=== PATIENT | male | born 1990 | race Caucasian/White ===

== ENCOUNTER 2019-03-03 17:20 | Emergency (ER) | payer SELFPAY ==
[~2019-03-03] VITALS: Ht 172.7 cm; Wt 70.3 kg
[2019-03-03 17:32] VITALS: BP 140/71
--- NOTE | 2019-03-03 17:37 | NUR ---
Patient ambulated to bed 7. RN evaluating patient at bedside.
[2019-03-03] MEDS ORDERED: predniSONE 20 MG TAB PO ONE (17:45)
[2019-03-03] MEDS ORDERED: IPRATROPIUM 0.02% 0.5 MG/2.5 ML NEBU INH ONE (17:45)
[2019-03-03] MEDS ORDERED: ALBUTEROL 0.083% 2.5 MG/3 ML NEBU INH ONE (17:45)
--- NOTE | 2019-03-03 17:53 | NUR ---
Breathing treatment administered at bedside by respiratory therapist.
--- NOTE | 2019-03-03 18:35 | NUR ---
BREATHING TX DONE. PT FELT MUCH BETTER. Patient discharged with v/s stable. Written and verbal after care instructions given and explained. Patient alert, oriented and verbalized understanding of instructions. Ambulatory with steady gait. All questions addressed prior to discharge. ID band removed. Patient advised to follow up with PMD. Rx of PREDNISONE, ALBUTEROL AND AEROcHAMBER given. Patient educated on indication of medication including possible reaction and side effects. Opportunity to ask questions provided and answered.
== END 2019-03-03 18:35 | disposition home or self-care (01) ==
LOC: MED 17:20
DX: J45.901 Unspecified asthma with (acute) exacerbation (principal); R03.0 Elevated blood-pressure reading, without diagnosis of hypertension; F17.210 Nicotine dependence, cigarettes, uncomplicated; F12.90 Cannabis use, unspecified, uncomplicated
CPT/HCPCS: 94640; 99283; J7512; J7613; J7644

== ENCOUNTER 2019-03-10 02:23 | Emergency (ER) | payer MEDICAID ==
[~2019-03-10] VITALS: Ht 172.7 cm; Wt 72.6 kg
[2019-03-10 02:27] VITALS: BP 132/76
--- NOTE | 2019-03-10 02:32 | NUR ---
PT AMBULATED TO BED #2
--- NOTE | 2019-03-10 02:40 | NUR ---
DR. LLAMAS BEDSIDE EVALUATING PT
[2019-03-10] MEDS ORDERED: ALBUTEROL SULFATE/IPRATROPIU 3 ML SOL IH ONE ×2 (02:45→03:30)
--- NOTE | 2019-03-10 02:45 | NUR ---
28 Y/O M PRESENTS TO ER C/O DIFFICULTY BREATHING. PER PT "I WAS SLEEPING AND WOKE UP AND THEN HAD DIFFICULTY BREATHING X 30MIN" PT HAS PAIN WHEN BREATHING, PAIN LEVEL 10/10. RESPIRATIONS ARE EVEN AND LABORED. BREATH SOUNDS BILATERALLY WHEEZING THROUGHOUT. PT HAS ASTHMA, BUT NO MEDICATIONS ON HAND. NKA. MED HX: ASTHMA. SAFETY MEASURES IN PLACE. ERMD MADE AWARE OF PT STATUS.
--- NOTE | 2019-03-10 02:50 | NUR ---
RT AT BEDSIDE
--- NOTE | 2019-03-10 03:10 | NUR ---
PT STATES PAIN RELIEF AFTER BREATHING TREATMENT. PAIN LEVEL TO CHEST DECREASED TO LEVEL 5/10.
[2019-03-10] MEDS ORDERED: predniSONE 20 MG TAB PO ONE (03:15)
--- NOTE | 2019-03-10 03:34 | NUR ---
X-RAY AT BEDSIDE
[2019-03-10 04:59] VITALS: BP 129/92
--- NOTE | 2019-03-10 04:59 | NUR ---
Patient discharged with v/s stable. Written and verbal after care instructions given and explained. Patient alert, oriented and verbalized understanding of instructions. Ambulatory with steady gait. All questions addressed prior to discharge. ID band removed. Patient advised to follow up with PMD. Rx of ALBUTEROL, PREDISONE WAS given. Patient educated on indication of medication including possible reaction and side effects. Opportunity to ask questions provided and answered.
== END 2019-03-10 04:59 | disposition home or self-care (01) ==
LOC: MED 02:23
DX: J45.901 Unspecified asthma with (acute) exacerbation (principal); F17.210 Nicotine dependence, cigarettes, uncomplicated; Z71.6 Tobacco abuse counseling
CPT/HCPCS: 71045; 94640; 99284; J7512; J7620; Q0092

== ENCOUNTER 2019-03-17 01:25 | Emergency (ER) | payer MEDICAID ==
[~2019-03-17] VITALS: Ht 175.3 cm; Wt 72.6 kg
[2019-03-17 01:25] VITALS: BP 128/94
--- NOTE | 2019-03-17 01:25 | NUR ---
PT IN [facility] ON OVERFLOW1 D/T BED DELAY. NO SOB/DYSPNEA. 96% @RA. NO RESPIRATORY DISTRESS NOTED. CONTINUE TO MONITOR.
[2019-03-17 01:50] VITALS: BP 122/80
--- NOTE | 2019-03-17 01:54 | NUR ---
ISABEL CANTU ALS TO ER BED 1
--- NOTE | 2019-03-17 02:00 | NUR ---
24 Y/O M BIBA FOR SOB X2HRS. PER EMS SPO2 WAS 88% ON RA WITH WHEEZING ON SCENE. PT GIVEN [facility]. PER PT "I RAN OUT OF MY INLAHER." SPO2 97% ON RA. RESPIRATIONS EVEN AND UNLABORED. WHEEZING HEARD TO BILATERAL UPPER LOBES. WILL CONTINUE TO MONITOR.
--- NOTE | 2019-03-17 03:47 | NUR ---
Patient discharged with v/s stable. Written and verbal after care instructions given and explained. Patient alert, oriented and verbalized understanding of instructions. Ambulatory with steady gait. All questions addressed prior to discharge. ID band removed. Patient advised to follow up with PMD. Rx of ALBUTEROL AND PREDNISONE given. Patient educated on indication of medication including possible reaction and side effects. Opportunity to ask questions provided and answered.
== END 2019-03-17 03:47 | disposition home or self-care (01) ==
LOC: MED 01:25
DX: J45.901 Unspecified asthma with (acute) exacerbation (principal); F17.210 Nicotine dependence, cigarettes, uncomplicated; Z76.0 Encounter for issue of repeat prescription; Z71.6 Tobacco abuse counseling
CPT/HCPCS: 99283

== ENCOUNTER 2019-03-17 16:40 | Emergency (ER) | payer MEDICAID ==
[~2019-03-17] VITALS: Ht 175.3 cm; Wt 72.6 kg
[2019-03-17 16:46] VITALS: BP 127/90
--- NOTE | 2019-03-17 16:52 | NUR ---
PT AMBULATED TO BED 8.
--- NOTE | 2019-03-17 16:58 | NUR ---
PT BIB SELF C/O BL CP X LAST NIGHT. PT REPORTS ACHY, SHARP, AND NUMB PAIN THAT RADIATES UP TO CHEST ALONG W/ NAUSEA. CAP REFIL <3 SEC, NO EDEMA, NI JUGULAR VEIN DISTENTION, S1 AND S2 HEART SOUNDS ASCULTATED, NO SOB, NO DIAPHORESIS. PT ALSO STATES THAT HE THINKS HE HAS ZIKA. VSS. ER MD TO SEE PT. MEDHX:ASTHMA RX:DENIES
[2019-03-17] MEDS ORDERED: predniSONE 20 MG TAB PO ONE (17:05)
[2019-03-17] MEDS ORDERED: IPRATROPIUM 0.02% 0.5 MG/2.5 ML NEBU INH ONE (17:05)
[2019-03-17] MEDS ORDERED: ALBUTEROL 0.083% 2.5 MG/3 ML NEBU INH ONE (17:05)
--- NOTE | 2019-03-17 18:21 | NUR ---
PT SLEEPING IN BED. NO DISTRESS NOTED. VSS.
[2019-03-17 18:27] VITALS: BP 120/70
--- NOTE | 2019-03-17 18:27 | NUR ---
Patient discharged with v/s stable. Written and verbal after care instructions given and explained. Patient alert, oriented and verbalized understanding of instructions. Ambulatory with steady gait. All questions addressed prior to discharge. ID band removed. Patient advised to follow up with PMD. Rx of ALBUTEROL AND PREDNISONE given. Patient educated on indication of medication including possible reaction and side effects. Opportunity to ask questions provided and answered. PT GIVEN PRESCRIPTION CARDS FOR DISCOUNT TO MEDICATIONS
== END 2019-03-17 18:27 | disposition home or self-care (01) ==
LOC: MED 16:40
DX: J45.901 Unspecified asthma with (acute) exacerbation (principal); F17.200 Nicotine dependence, unspecified, uncomplicated; F12.90 Cannabis use, unspecified, uncomplicated
CPT/HCPCS: 93005; 94640; 99283; J7512; J7613; J7644